=== PATIENT | male | born 1990 | race Caucasian/White ===

== ENCOUNTER 2016-10-23 16:21 | Emergency (ER) | payer BC ==
[2016-10-23] MEDS ORDERED: DIPH,PERTUS(ACELL)TETVAC-LF 0.5 ML VIAL IM ONE (16:38)
--- NOTE | 2016-10-23 16:45 | ED ---
General Adult HPI - General Chief complaint: Extremity Injury, Upper Stated complaint: left hand injury Time Seen by Provider: 10/23/16 16:30 Source: patient, RN notes reviewed Mode of arrival: wheelchair Limitations: no limitations - History of Present Illness Initial comments: Patient 26-year-old male who presents emergency room today with a chief complaint of an injury to the left hand. He does admit that he was at the grocery store putting a cart away in its ground when he tripped falling forward hitting the left hand. He states it did cause a laceration to the nailbed of the left middle finger was worried about all broken bone in this area. States completely removed his nail in this area. Patient denies any head injury or loss of consciousness. Patient is unsure of his tetanus status. He does admit to pain locally to the left hand. He denies any other complaints or symptoms at this time. - Related Data Home Medications Medication Instructions Recorded Confirmed Lactase [Lactaid] 3,000 - 6,000 unit PO DAILY PRN 10/23/16 10/23/16 Previous Rx's Medication Instructions Recorded Cephalexin [Keflex] 500 mg PO Q12HR 10 Days 10/23/16 Ibuprofen [Motrin] 600 mg PO Q6HR PRN #30 day 10/23/16 Allergies Allergy/AdvReac Type Severity Reaction Status Date / Time No Known Allergies Allergy Verified 10/23/16 16:35 Review of Systems ROS Statement: Those systems with pertinent positive or pertinent negative responses have been documented in the HPI. ROS Other: All systems not noted in ROS Statement are negative. Past Medical History Past Medical History: No Reported History History of Any Multi-Drug Resistant Organisms: None Reported Past Surgical History: No Surgical Hx Reported Past Psychological History: No Psychological Hx Reported Smoking Status: Never smoker Past Alcohol Use History: None Reported Past Drug Use History: None Reported General Exam - General Exam Comments Initial Comments: General: The patient is awake and alert, in no distress, and does not appear acutely ill. Eye: Pupils are equal, round and reactive to light, extra-ocular movements are intact. No nystagmus. There is normal conjunctiva bilaterally. No signs of icterus. Ears, nose, mouth and throat: There are moist mucous membranes and no oral lesions. Neck: The neck is supple, there is no tenderness or JVD. Cardiovascular: There is a regular rate and rhythm. No murmur, rub or gallop is appreciated. Respiratory: Lungs are clear to auscultation, respirations are non-labored, breath sounds are equal. No wheezes, stridor, rales, or rhonchi. Musculoskeletal: Normal ROM, no tenderness. Strength 5/5. Sensation intact. Pulses equal bilaterally 2+. Neurological: A&O x 3. CN II-XII intact, There are no obvious motor or sensory deficits. Coordination appears grossly intact. Speech is normal. Skin: Patient's left hand middle finger nail missing. Laceration to the nailbed and not actively bleeding. Shows good range of motion. Psychiatric: Cooperative, appropriate mood & affect, normal judgment. Limitations: no limitations Course Vital Signs 10/23/16 10/23/16 10/23/16 16:22 16:31 17:39 Temperature 97.9 F Pulse Rate 47 L 58 L 57 L Respiratory 16 20 Rate Blood Pressure 83/51 128/61 133/63 O2 Sat by Pulse 97 98 100 Oximetry Procedures - Procedures Initial comment: 1 cm linear laceration running horizontally to the nailbed. No bleeding.The skin was anesthetized with 1% lidocaine at the proximal first phalanx. The laceration was then cleansed with Betadine and irrigated with normal saline. The wound was inspected, and there was no evidence of injury to deep structures. No foreign body was noted in the wound. A total of 2 skin sutures were placed utilizing 5-0 Vicryl. Disposition Clinical Impression: Finger fracture, left, Laceration Disposition: HOME SELF-CARE Condition: Good Instructions: Finger Fracture (ED), Laceration (ED) Additional Instructions: Please follow-up with orthopedics or family doctor over the next 2 days. Please continue antibiotics and use pain medication of Tylenol/ibuprofen as needed. Please return to emergency room for any other concerns. Prescriptions: Cephalexin [Keflex] 500 mg PO Q12HR 10 Days Ibuprofen [Motrin] 600 mg PO Q6HR PRN #30 day PRN Reason: Pain Referrals: Carmen Rodriguez MD [Primary Care Provider] - 1-2 days Time of Disposition: 17:46
--- NOTE | 2016-10-23 17:00 | XR ---
EXAMINATION TYPE: XR hand complete LT DATE OF EXAM: 10/23/2016 COMPARISON: NONE HISTORY: Pain TECHNIQUE: 3 views FINDINGS: There is a nondisplaced chip fracture of the tuft of the distal phalanx of the middle finge r. Metacarpals appear intact. Joint spaces are normal. IMPRESSION: Tuft fracture distal phalanx middle finger left hand.
[2016-10-23] MEDS ORDERED: CEPHALEXIN 500MG STARTER PACK 4 CAP BTL PO STA (17:44)
[2016-10-23 18:04] VITALS: BP 124/74; PULSE 60; RESP 16; TEMP 98.3
== END 2016-10-23 18:19 | disposition home or self-care (01) ==
LOC: EC 16:21
DX: S62.663B Nondisplaced fracture of distal phalanx of left middle finger, initial encounter for open fracture (principal); Z23 Encounter for immunization; W01.10XA Fall on same level from slipping, tripping and stumbling with subsequent striking against unspecified object, initial encounter; Y92.512 Supermarket, store or market as the place of occurrence of the external cause
CPT/HCPCS: 11760; 26750; 90471; 90715; 99283